=== PATIENT | male | born 1940 | race Caucasian/White ===

== ENCOUNTER 2017-12-06 06:00 | Day surgery (SDC) | payer OTHER ==
[~2017-12-06] VITALS: Ht 175.3 cm; Wt 81.6 kg
[2017-12-07] MEDS ORDERED: RECTICARE30 GM TOP (07:52)
[2017-12-07] MEDS ORDERED: OXYC1TAB9 PO (07:52)
== END 2017-12-07 07:50 | disposition home or self-care (01) ==
LOC: CIR.AMB 06:00 → SURH 11:00 → EDSTATUS 13:00 → SURH 13:00 → O/R 18:31 → CIR.AMB 12-07 07:50 → O/R 12-07 13:55 → SURH 12-07 13:55
DX: D12.9 Benign neoplasm of anus and anal canal (principal)

== ENCOUNTER 2020-05-24 10:45 | Inpatient (IN) | payer OTHER ==
[~2020-05-24] VITALS: Ht 175.3 cm; Wt 77.6 kg
[~2020-05-24 10:45] MED LIST: OXYC1TAB9 PO; RECTICARE30 GM TOP
[2020-05-24] MEDS ORDERED: LIPITOR40 M1 PO (15:35)
[2020-05-24] MEDS ORDERED: OMEPRAZO PO (15:35)
[2020-05-31] MEDS ORDERED: FAMOTIDINE40 MG (08:12)
[2020-05-31] MEDS ORDERED: CEPHALEXIN500 MG (08:12)
[2020-05-31] MEDS ORDERED: OMEPRAZOLE40 MG (08:12)
[2020-06-01] MEDS ORDERED: RECTICARE30 GM TOP (13:57)
[2020-06-01] MEDS ORDERED: ULTRACET PO (13:58)
== END 2020-06-01 14:41 | disposition home or self-care (01) | DRG 376 ==
LOC: SURH 05-31 07:00 → SURG 05-31 07:06 → O/R 05-31 07:06 → SURH 05-31 10:45 → SURG 05-31 13:14
PROVIDERS: ADMIT Surgery; ATTEND Surgery
PROC: 0DBQ7ZX Excision of Anus, Via Natural or Artificial Opening, Diagnostic (ICD-10-PCS; principal; 2020-05-31 07:00)
DX: D37.5 Neoplasm of uncertain behavior of rectum (principal); K63.5 Polyp of colon; E78.5 Hyperlipidemia, unspecified

== ENCOUNTER 2021-02-08 06:56 | Day surgery (SDC) | payer OTHER ==
[~2021-02-08 06:56] MED LIST changes: +CEPHALEXIN500 MG; +FAMOTIDINE40 MG; +LIPITOR40 M1 PO; +OMEPRAZO PO; +OMEPRAZOLE40 MG; +ULTRACET PO
== END 2021-02-08 13:30 | disposition home or self-care (01) ==
LOC: CIR.AMB 06:56
PROVIDERS: ATTEND Surgery
DX: D12.2 Benign neoplasm of ascending colon (principal); K62.82 Dysplasia of anus; K64.8 Other hemorrhoids; Z20.822 Contact with and (suspected) exposure to COVID-19